=== PATIENT | male | born 1985 | race Caucasian/White ===

== ENCOUNTER 2020-10-15 12:57 | Outpatient (CLI) | payer OTHER ==
[2020-10-15] MEDS ORDERED: OMNIPAQUE 350 MG/ML, 100ML BOTTLE ONE (13:28)
[2020-10-15] MEDS ORDERED: BUPIVACAINE/PF 0.5% ONE (18:19)
[2020-10-15] MEDS ORDERED: FENTANYL PF 250 MCG/5ML ONE (18:37)
[2020-10-15] MEDS ORDERED: MIDAZOLAM 1 MG/ML, 2ML ONE (18:37)
[2020-10-15] MEDS ORDERED: ACETAMINOPHEN 325 MG TABLET PO PRN (19:00)
[2020-10-15] MEDS ORDERED: PROMETHAZINE 25 MG/ML, 1ML IVPush PRN (19:00)
[2020-10-15] MEDS ORDERED: HALOPERIDOL 5 MG/ML IV PRN (19:00)
[2020-10-15] MEDS ORDERED: MEPERIDINE/PF 25MG/0.5ML IVPush PRN (19:00)
[2020-10-15] MEDS ORDERED: LABETALOL 5MG/ML, 20ML IV PRN (19:00)
[2020-10-15] MEDS ORDERED: HYDROmorphone 1 MG/ML, 1ML INJ IVPush PRN (19:00)
[2020-10-15] MEDS ORDERED: PLEASE ENTER HEIGHT AND WEIGHT MC SCH (19:00)
[2020-10-15] MEDS ORDERED: morphine SULFATE 10 MG/ML, 1ML IVPush PRN (19:00)
[2020-10-15] MEDS ORDERED: FENTANYL PF 100 MCG/2ML IV PRN (19:00)
[2020-10-15] MEDS ORDERED: OXYcodone 5 MG/5 ML ORAL.SOL UDC PO PRN (19:00)
[2020-10-15] MEDS ORDERED: hydrALAzine 20 MG/ML, 1ML IV PRN (19:00)
[2020-10-15] MEDS ORDERED: PROPOFOL 10 MG/ML, 20ML ONE (19:04)
[2020-10-15] MEDS ORDERED: SUCCINYLCHOLINE 20 MG/ML, 10ML ONE (19:04)
[2020-10-15] MEDS ORDERED: ROCURONIUM 10MG/ML,5ML ONE (19:04)
[2020-10-15] MEDS ORDERED: ONDANSETRON 2MG/ML, 2ML ONE (19:04)
[2020-10-15] MEDS ORDERED: KETOROLAC 30 MG/1 ML ONE (19:31)
[2020-10-15] MEDS ORDERED: OXYC-302 PO (19:38)
== END 2020-10-15 23:59 | disposition home or self-care (01) ==
LOC: RAD 12:57
PROVIDERS: ATTEND Family Medicine
DX: R10.31 Right lower quadrant pain (principal); K35.80 Unspecified acute appendicitis
CPT/HCPCS: 74177; Q9967; J1885; J2250; J2405; J2704; J3010; J0330

== ENCOUNTER 2020-10-15 16:44 | Day surgery (SDC) | payer OTHER ==
[~2020-10-15] VITALS: Ht 175.3 cm; Wt 72.0 kg
[2020-10-15 16:56] VITALS: BP 129/82
[2020-10-15] MEDS ORDERED: BUPIVACAINE/PF-EPI 0.5% 1:200K INFIL ONE (17:05)
--- NOTE | 2020-10-15 17:26 | NUR ---
BP CUFF, PULSE OX IN PLACE. PT STATES PAIN MINIMAL, 1-2/10, DECLINES PAIN MEDICATION AT THIS TIME. IV PLACED, LABS DRAWN WITH START/ CALL LIGHT WITHIN REACH, WARM BLANKET PROVIDED.
[2020-10-15] MEDS ORDERED: SODIUM CHLORIDE FLUSH 10ML SYR IVF ONE (17:30)
[2020-10-15] MEDS ORDERED: HYDROmorphone 2 MG/ML, 1ML IVPush PRN (17:30)
[2020-10-15] MEDS ORDERED: CEFOTETAN PMX 1GM/50ML 50 ML IVPB ONE (17:30)
[2020-10-15] MEDS ORDERED: ONDANSETRON 2MG/ML, 2ML IVPush ONE (17:30)
--- NOTE | 2020-10-15 17:38 | NUR ---
REPORT TO [facility].
[2020-10-15 17:39] LABS: BASOPHILS % (AUTO) 0 % (0-1); EOSINOPHILS % (AUTO) 1 % (1-7); LYMPHOCYTES % (AUTO) 14 % (22-44); MEAN CORPUSCULAR HEMOGLOBIN 34.4 pg (27.5-34.5); MEAN CORPUSCULAR HGB CONC 35.2 g/dL (33.2-36.2); MEAN PLATELET VOLUME 8.2 fL (7.4-10.4); MONOCYTES % (AUTO) 8 % (2-9); NEUTROPHILS % (AUTO) 77 % (42-75); PLATELET COUNT 192 x10^3/uL (130-400); RED BLOOD COUNT 4.97 x10^6/uL (4.38-5.82); RED CELL DISTRIBUTION WIDTH 12.7 % (9.4-14.8)
[2020-10-15 17:44] LABS: MD NO
[2020-10-15 17:46] LABS: ALBUMIN 4.1 g/dL (3.4-5.0); ANION GAP 5 mmol/L (5-15); CALCIUM 9.2 mg/dL (8.5-10.1); CHLORIDE 104 mmol/L (98-107); CREATININE 0.99 mg/dL (0.7-1.3)
--- NOTE | 2020-10-15 17:49 | NUR ---
CEFOTETAN INFUSING PER ERP ORDER. COVID SWAB COMPLETED/WALKED TO LAB.
[2020-10-15] MEDS ORDERED: SODIUM CHLORIDE FLUSH 10ML SYR IVF PRN (18:30)
[2020-10-15] MEDS ORDERED: FENTANYL PF 250 MCG/5ML ONE (18:50)
[2020-10-15] MEDS ORDERED: ROCURONIUM 10 MG/ML,10ML ONE (18:50)
[2020-10-15] MEDS ORDERED: ONDANSETRON 2MG/ML, 2ML ONE (18:50)
[2020-10-15] MEDS ORDERED: SUCCINYLCHOLINE 20 MG/ML, 10ML ONE (18:50)
[2020-10-15] MEDS ORDERED: BUPIVACAINE/PF 0.5% ONE (18:50)
[2020-10-15] MEDS ORDERED: DEXAMETHASONE 4 MG/ML, 1ML ONE (18:50)
[2020-10-15] MEDS ORDERED: SUGAMMADEX 200 MG/2 ML IVPush ONE (18:50)
[2020-10-15] MEDS ORDERED: KETOROLAC 30 MG/1 ML ONE (18:50)
[2020-10-15] MEDS ORDERED: PROPOFOL 10 MG/ML, 20ML ONE (18:50)
[2020-10-15] MEDS ORDERED: MIDAZOLAM 1 MG/ML, 2ML ONE (18:50)
[2020-10-15] MEDS ORDERED: OXYC1TAB14 PO (19:38)
[2020-10-15] MEDS ORDERED: OXYcodone 5 MG/5 ML ORAL.SOL UDC ONE (20:39)
[2020-10-15] MEDS ORDERED: OXYcodone 5 MG/5 ML ORAL.SOL UDC PO PRN (21:00)
== END 2020-10-15 20:58 | disposition home or self-care (01) ==
LOC: EDSTATUS 18:00 → SUATTDRO 18:05 → OUT 18:26 → OR 18:26 → UNDOADMIN 18:34 → ORIP 18:34 → OR 20:58 → OUT 20:58
PROVIDERS: ATTEND Emergency Medicine
DX: K35.80 Unspecified acute appendicitis (principal); F17.210 Nicotine dependence, cigarettes, uncomplicated; Z20.822 Contact with and (suspected) exposure to COVID-19
CPT/HCPCS: 36415; 44970; 80048; 82040; 85025; 87635; 88304; 96365; 99285; J0330; J1100; J1885; J2250; J2405; J2704; J3010